=== PATIENT | male | born 1985 | race Caucasian/White ===

== ENCOUNTER 2022-01-18 15:05 | Emergency (ER) | payer MEDICAID | END 2022-01-18 15:40 | disposition home or self-care (01) | LOC: VM.ED 15:05 | DX: K02.9 Dental caries, unspecified (principal) | CPT/HCPCS: 99282; 99283 ==

== ENCOUNTER 2022-09-23 09:20 | Emergency (ER) | payer MEDICAID | END 2022-09-23 09:39 | disposition home or self-care (01) | LOC: VM.ED 09:20 | DX: K02.9 Dental caries, unspecified (principal); J45.909 Unspecified asthma, uncomplicated; Z91.040 Latex allergy status | CPT/HCPCS: 99282 ==

== ENCOUNTER 2022-12-14 11:32 | Emergency (ER) | payer MEDICAID | END 2022-12-14 12:47 | disposition home or self-care (01) | LOC: VM.ED 11:32 | DX: S59.911A Unspecified injury of right forearm, initial encounter (principal); Z91.040 Latex allergy status; W00.0XXA Fall on same level due to ice and snow, initial encounter | CPT/HCPCS: 73110-RT; 99283 ==